=== PATIENT | female | born 1955 ===

== ENCOUNTER 2021-06-07 09:26 | Emergency (ER) | payer SELFPAY ==
[~2021-06-07 09:26] MED LIST: CALCIUM CHLORIDE 1,000 MG/10 ML SYRINGE IV ONE; EPINEPHrine 1 MG/10 ML SYRINGE ONE; MAGNESIUM SULFATE 1 GM/2ML (4 MEQ/1ML) INJ ONE; SODIUM BICARB 8.4% 50 MEQ/50 ML SYRINGE IV ONE
[2021-06-07] MEDS ORDERED: SODIUM CHLORIDE 0.9% 1000 ML 1,000 ML IV ONE (09:33)
--- NOTE | 2021-06-07 09:37 | Emergency Department Report ---
HPI - General Chief Complaint: Dyspnea/Respdistress Time Seen by Provider: 06/07/21 09:28 - HPI HPI: Room 17 The patient is 65-year-old female present with a chief complaint of altered mental status. Per EMS the patient's found the patient unresponsive and EMS was called. Secondary to language barrier EMS states they were not able to obtain history surrounding the circumstances of the patient being found altered. EMS reports the patient was hypoxic to approximately 63% on room air. EMS reports the patient vomited blood so the decision to intubate to secure the airway was made in the ambulance. Upon arrival to the ED the patient is i ntubated being bagged by EMS but still unresponsive. ED Past Medical Hx - Past Medical History Previous Medical History?: Yes Hx Diabetes: Yes - Surgical History Past Surgical History?: No - Family History Family history: no significant - Social History Smoking Status: Unknown if ever smoked Substance Use Type: None - Medications Home Medications: Home Medications Medication Instructions Recorded Confirmed Last Taken Type Insulin NPH Hum/Reg Insulin Hm 2 unit SQ QPM 10/17/15 10/17/15 Unknown History [HumuLIN 70-30 Vial] Insulin NPH Hum/Reg Insulin Hm 3 unit SQ QDAY 10/17/15 10/17/15 Unknown History [HumuLIN 70-30 Vial] Ketorolac [Toradol] 10 mg PO Q6H PRN #20 tablet 10/17/15 Unknown Rx cephALEXin [Keflex] 500 mg PO Q6HR #28 capsule 10/17/15 Unknown Rx metFORMIN [Glucophage] 500 mg PO BID 10/17/15 10/17/15 Unknown History ED Review of Systems ROS: Stated complaint: UNRESPONSIVE Other details as noted in HPI Comment: Unobtainable due to pts medical conditions Physical Exam - Physical Exam Vital Signs: Vital Signs 06/07/21 09:28 Pulse Rate 140 H Respiratory 18 Rate Blood Pressure 160/30 [Left] O2 Sat by Pulse 100 Oximetry Physical Exam: GENERAL: The patient is well-developed well-nourished female lying on stretcher being bagged via ET tube unresponsive. [] HEENT: Normocephalic. Atraumatic. Pupils 5 to 4 mm bilaterally NECK: Trachea midline CHEST/LUNGS: Clear to auscultation. There is no respiratory distress noted. HEART/CARDIOVASCULAR: Regular. There is tachycardia. There is no gallop rub or murmur. ABDOMEN: Abdomen is soft, nontender. Patient has normal bowel sounds. There is no abdominal distention. SKIN: There is no rash. There is no edema. There is no diaphoresis. NEURO: GCS 3 T MUSCULOSKELETAL: There is no evidence of acute injury. ED Course Vital Signs 06/07/21 09:28 Pulse Rate 140 H Respiratory 18 Rate Blood Pressure 160/30 [Left] O2 Sat by Pulse 100 Oximetry - Consultations Consultation #1: 06/07/21 13:08 Neurosurgery paged 06/07/21 15:02 Case discussed with neurosurgery- nonsurvivable. ED Medical Decision Making - Lab Data Result diagrams: 06/07/21 10:11 06/07/21 10:11 - Radiology Data Radiology results: report reviewed (Chest x-ray, CT head, CTA chest, CTA abdomen pelvis), image reviewed (Chest x-ray, CT head, CT chest, CTA abdomen pelvis) interpreted by me: Chest x-ray-no definite focal infiltrates, no pneumothorax. ET tube in appropriate position [facility] [address] [place] [address] XRay Report Signed Patient: ANTOINE NANCE MR#: [id number] : 1955 Acct:[id number] Age/Sex: 65 / F ADM Date: 06/07/21 Loc: ED Attending Dr: Ordering Physician: REBEKA BURNHAM MD Date of Service: 06/07/21 Procedure(s): XR chest 1V ap Accession Number(s): [id number] cc: REBEKA BURNHAM MD Fluoro Time In Minutes: CHEST 1 VIEW INDICATION: Hypoxia s/p intubation. COMPARISON: None FINDINGS: Support devices: An endotracheal tube has been deployed which is in good position terminating 3.6 cm superior to the lucero. A nasogastric tube has been inserted which terminates in the fundus/body of the stomach. Cardiac defibrillator pads overlie the chest. Heart: Within normal limits. Lungs/Pleura: The lungs are clear with no evidence for infiltrate, pleural effusion or pneumothorax. Additional findings: None. IMPRESSION: Adequate placement of lines and tubes. No acute process is identified in the chest. Signer Name: Marvin Gonsalez Jr, MD Signed: 06/07/2021 9:59 AM Workstation Name: [id number] Transcribed By: TTR Dictated By: MARVIN GONSALEZ JR, MD Electronically Authenticated By: MARVIN GONSALEZ JR, MD Signed Date/Time: 06/07/21958 DD/ 7 TD/TT: Print Cancel [facility] [address] [place] [address] Cat Scan Report Signed Patient: ANTOINE NANCE MR#: [id number] : 1955 Acct:[id number] Age/Sex: 65 / F ADM Date: 06/07/21 Loc: ED Attending Dr: Ordering Physician: REBEKA BURNHAM MD Date of Service: 06/07/21 Procedure(s): CT head/brain wo con Accession Number(s): [id number] cc: REBEKA BURNHAM MD CT head/brain wo con INDICATION / CLINICAL INFORMATION: 65 years Female; Altered mental status/unresponsive. TECHNIQUE: Routine CT head without contrast. All CT scans at this location are performed using CT dose reduction for ALARA by means of automated exposure control. COMPARISON: None. FINDINGS: BRAIN / INTRACRANIAL CONTENTS: There is a large acute hematoma centered within the left frontal lobe measuring approximately 5.7 cm AP by 5.3 cm transverse in greatest dimensions. The hemorrhage also extends along the genu of corpus callosum involving medial right frontal lobe and the findings at may reflect lesion given the involvement of disc breath vascular distributions. There is associated surrounding edema with notable mass effect and subfalcine herniation. There is also notable effacement of the basal cisterns concerning for developing uncal herniation. There is notable interventricular extension of the hemorrhage which includes the third and fourth ventricles at. The hemorrhage within the lateral ventricles is greater on the left at. There is moderate to dilatation of the right lateral ventricle, particularly the right temporal horn which appears trapped. There is hemorrhage extending within the sylvian aqueduct and dilated fourth ventricle. However, there may also be a component within the marnie concerning for Duret hemorrhage. ORBITS: No significant abnormality of visualized orbits. SINUSES / MASTOIDS: Small air-fluid levels are seen within the maxillary sinuses in this intubated patient. CRANIOCERVICAL JUNCTION: No significant abnormality. ADDITIONAL FINDINGS: None. IMPRESSION: 1. There is large acute hematoma involving left frontal lobe which crosses the midline along the genu of the corpus callosum as detailed above. There is associated significant mass effect with subfalcine and impending uncal herniation 2. There is notable interventricular extension of the hemorrhage along with moderate dilatation of the right lateral ventricle which appears trapped. 3. Acute hemorrhage is noted along the sylvian aqueduct. However, there may also be component of hemorrhage within the marnie concerning for developing a intracranial hemorrhage given the above findings in mass effect. The findings represent a positive clinical test result and were discovered at 12:10 PM and called to Dr. Burnham in the ER at 12:12 PM Central standard time. Signer Name: Jamar Donovan MD Signed: 06/07/2021 1:14 PM Workstation Name: [id number] Transcribed By: MR Dictated By: Jamar Donovan MD Electronically Authenticated By: Jamar Donovan MD Signed Date/Time: 06/07/21 1315 DD/ 1304 TD/TT: Print Cancel [facility] [address] [place] [address] Cat Scan Report Signed Patient: ANTOINE NANCE MR#: [id number] : 1955 Acct:[id number] Age/Sex: 65 / F ADM Date: 06/07/21 Loc: ED Attending Dr: Ordering Physician: REBEKA BURNHAM MD Date of Service: 06/07/21 Procedure(s): CT angio chest Accession Number(s): [id number] cc: REBEKA BURNHAM MD CTA of the chest abdomen and pelvis with IV contrast INDICATION / CLINICAL INFORMATION: Hematemesis 100 ML OMNI 350 . Chest and abdominal pain GI bleed. TECHNIQUE: Axial CT images were obtained after injection of 100 mL Omnipaque 300 IV contrast using CTA protocol through the chest abdomen and pelvis. 3 plane MIP / 3D reconstructions were produced. All CT scans at this location are performed using CT dose reduction for ALARA by means of automated exposure control. COMPARISON: None available. FINDINGS: CTA chest: The endotracheal tube terminates about 2 cm above the lucero. There is patchy mixed groundglass and interstitial opacity within the lower lungs. There is focal consolidation surrounding the pulmonary vasculature within the medial aspect of the right lung base measuring about 2.9 x 2.4 cm. Patchy bibasilar atelectasis The heart size is normal. No pericardial or significant pleural effusion. No thoracic aortic aneurysm or dissection. There is mild scattered atherosclerotic calcification. Multiple shotty nonpathologically enlarged nodes are present within the mediastinum and both abbey. CTA abdomen and pelvis: Moderate atherosclerotic calcification of a nondilated abdominal aorta. No aneurysm or dissection. The celiac and SMA arteries are grossly patent. The renal arteries are grossly patent. The VENICE is patent. The liver is fatty. The gallbladder is unremarkable. The spleen, pancreas and kidneys are unremarkable. Multiple nodules are present within the left adrenal gland. Urinary bladder is collapsed by Ag catheter. The colon contains a moderate amount of stool but no contrast extravasation is identified. IMPRESSION: 1. Ill-defined 2.8 x 2.7 cm masslike opacity within the medial aspect of the right lower lobe. Underlying neoplasm cannot be excluded. 2. Moderate atherosclerotic calcification of the infrarenal abdominal aorta. No aneurysm or dissection is identified. No acute intra-abdominal findings are identified. Fatty liver and other incidental findings as noted above. Signer Name: Tam Ricci MD Signed: 06/07/2021 1:25 PM Workstation Name: [id number] Transcribed By: BC Dictated By: Tam Ricci MD Electronically Authenticated By: Tam Ricci MD Signed Date/Time: 06/07/21 1325 DD/ 1318 TD/TT: Print Cancel - Differential Diagnosis ICH, COVID-19, respiratory failure, DKA, hypovolemia Critical Care Time: Yes Critical care time in (mins) excluding proc time.: 30 Critical care attestation.: If time is entered above; I have spent that time in minutes in the direct care of this critically ill patient, excluding procedure time. ED Disposition Clinical Impression: Intracranial hemorrhage, Thrombocytopenia, Leukemia Disposition: ADMITTED INPATIENT Is pt being admited?: Yes Does the pt Need Aspirin: No Condition: Stable Referrals: PRIMARY CARE, [Primary Care Provider] - 3-5 Days Time of Disposition: 15:05 (Hospitalist called (Dr. Kitchen))
[2021-06-07 09:49] LABS: Bilirubin,Urine NEG (Negative); Blood,Urine NEG (Negative); Color,Urine Yellow (Yellow); Protein,Urine <15 mg/dL mg/dL (Negative); Urobilinogen,Urine < 2.0 mg/dL (<2.0); WBC,Urine < 1.0 /HPF (0.0-6.0)
[2021-06-07 09:58] LABS: RBC,Urine < 1.0 /HPF (0.0-6.0)
--- NOTE | 2021-06-07 10:04 | XRay Report ---
CHEST 1 VIEW INDICATION: Hypoxia s/p intubation. COMPARISON: None FINDINGS: Support devices: An endotracheal tube has been deployed which is in good position terminating 3.6 cm superior to the lucero. A nasogastric tube has been inserted which terminates in the fundus/body of t he stomach. Cardiac defibrillator pads overlie the chest. Heart: Within normal limits. Lungs/Pleura: The lungs are clear with no evidence for infiltrate, pleural effusion or pneumothorax. Additional findings: None. IMPRESSION: Adequate placement of lines and tubes. No acute process is identified in the chest. Signer Name: Marvin Gonsalez Jr, MD Signed: 06/07/2021 9:59 AM Workstation Name: [id number]
[2021-06-07 10:06] LABS: Amphetamine Screen,Urine Negative; Benzodiazepines Screen,Urine Negative; Cannabinoid Screen,Urine Negative; Cocaine Screen,Urine Negative; Methadone Screen,Urine Negative; Opiate Screen,Urine Negative
[2021-06-07 10:30] LABS: INR 1.98 (0.87-1.13); Partial Thromboplastin Time 34.3 Sec. (24.2-36.6)
[2021-06-07 10:31] LABS: Hematocrit 20.3 % (30.3-42.9); Mean Corpuscular HGB Conc 30 % (30-34); Mean Corpuscular Volume 94 fl (79-97); Red Blood Count 2.16 M/mm3 (3.65-5.03); Red Cell Distribution Width 15.3 % (13.2-15.2)
[2021-06-07 10:33] LABS: ABG Base Excess -11.7 mmol/L (-2.0-3.0); ABG PCO2 27.1 mm Hg; ABG PH 7.298 pH Units (7.350-7.450); ABG PO2 83.5 mm Hg (80.0-90.0)
[2021-06-07 10:36] LABS: Platelet Count 8 K/mm3 (140-440)
[2021-06-07 10:37] LABS: ABG Methemoglobin 0.6 % (0.0-1.5); ABG Oxygen Saturation 98.3 % (95.0-99.0)
[2021-06-07 10:41] LABS: Albumin 3.6 g/dL (3.9-5)
[2021-06-07 10:50] LABS: Free T4 (Free Thyroxine) 1.62 ng/dL (0.76-1.46)
[2021-06-07 10:53] LABS: Calcium 8.7 mg/dL (8.4-10.2)
[2021-06-07] MEDS ORDERED: LACTULOSE ENEMA 1000 ML PR ONE (11:49)
[2021-06-07] MEDS ORDERED: NORepinephrine/NS 8 MG-250 ML 8 MG/250 ML INFUS..BTL IV SCH (12:00)
[2021-06-07 12:08] LABS: Basophils % (Manual) 0 % (0.0-1.8); Eosinophils % (Manual) 0 % (0.0-4.3); Monocytes % (Manual) 0 % (0.0-7.3); Total Cells Counted 13
[2021-06-07] MEDS ORDERED: SODIUM CHLORIDE 0.9% 500 ML 500 ML IV ONE (12:39)
--- NOTE | 2021-06-07 13:19 | Cat Scan Report ---
CT head/brain wo con INDICATION / CLINICAL INFORMATION: 65 years Female; Altered mental status/unresponsive. TECHNIQUE: Routine CT head without contrast. All CT scans at this location are performed using CT dos e reduction for ALARA by means of automated exposure control. COMPARISON: None. FINDINGS: BRAIN / INTRACRANIAL CONTENTS: There is a large acute hematoma centered within the left frontal lobe measuring approximately 5.7 cm AP by 5.3 cm transverse in greatest dimensions. The hemorrhage also ex tends along the genu of corpus callosum involving medial right frontal lobe and the findings at may r eflect lesion given the involvement of disc breath vascular distributions. There is associated surrou nding edema with notable mass effect and subfalcine herniation. There is also notable effacement of t he basal cisterns concerning for developing uncal herniation. There is notable interventricular extension of the hemorrhage which includes the third and fourth ian tricles at. The hemorrhage within the lateral ventricles is greater on the left at. There is moderate to dilatation of the right lateral ventricle, particularly the right temporal horn which appears tra pped. There is hemorrhage extending within the sylvian aqueduct and dilated fourth ventricle. However , there may also be a component within the marnie concerning for Duret hemorrhage. ORBITS: No significant abnormality of visualized orbits. SINUSES / MASTOIDS: Small air-fluid levels are seen within the maxillary sinuses in this intubated pa tient. CRANIOCERVICAL JUNCTION: No significant abnormality. ADDITIONAL FINDINGS: None. IMPRESSION: 1. There is large acute hematoma involving left frontal lobe which crosses the midline along the genu of the corpus callosum as detailed above. There is associated significant mass effect with subfalcin e and impending uncal herniation 2. There is notable interventricular extension of the hemorrhage along with moderate dilatation of th e right lateral ventricle which appears trapped. 3. Acute hemorrhage is noted along the sylvian aqueduct. However, there may also be component of hemo rrhage within the marnie concerning for developing a intracranial hemorrhage given the above findings i n mass effect. The findings represent a positive clinical test result and were discovered at 12:10 PM and called to Dr. Serrano in the ER at 12:12 PM Central standard time. Signer Name: Jamar Donovan MD Signed: 06/07/2021 1:14 PM Workstation Name: [id number]
--- NOTE | 2021-06-07 13:30 | Cat Scan Report ---
CTA of the chest abdomen and pelvis with IV contrast INDICATION / CLINICAL INFORMATION: Hematemesis 100 ML OMNI 350 . Chest and abdominal pain GI bleed. TECHNIQUE: Axial CT images were obtained after injection of 100 mL Omnipaque 300 IV contrast using CTA protocol through the chest abdomen and pelvis. 3 plane MIP / 3D reconstructions were produced. All CT scans at this location are performed using CT dose reduction for ALARA by means of automated exposure control . COMPARISON: None available. FINDINGS: CTA chest: The endotracheal tube terminates about 2 cm above the lucero. There is patchy mixed groundglass and i nterstitial opacity within the lower lungs. There is focal consolidation surrounding the pulmonary va sculature within the medial aspect of the right lung base measuring about 2.9 x 2.4 cm. Patchy bibasi lar atelectasis The heart size is normal. No pericardial or significant pleural effusion. No thoracic aortic aneurysm or dissection. There is mild scattered atherosclerotic calcification. Multiple shotty nonpathologica lly enlarged nodes are present within the mediastinum and both abbey. CTA abdomen and pelvis: Moderate atherosclerotic calcification of a nondilated abdominal aorta. No aneurysm or dissection. Th e celiac and SMA arteries are grossly patent. The renal arteries are grossly patent. The VENICE is paten t. The liver is fatty. The gallbladder is unremarkable. The spleen, pancreas and kidneys are unremarkabl e. Multiple nodules are present within the left adrenal gland. Urinary bladder is collapsed by Ga catheter. The colon contains a moderate amount of stool but no contrast extravasation is identified. IMPRESSION: 1. Ill-defined 2.8 x 2.7 cm masslike opacity within the medial aspect of the right lower lobe. Underl jayden neoplasm cannot be excluded. 2. Moderate atherosclerotic calcification of the infrarenal abdominal aorta. No aneurysm or dissectio n is identified. No acute intra-abdominal findings are identified. Fatty liver and other incidental f indings as noted above. Signer Name: Tam Ricci MD Signed: 06/07/2021 1:25 PM Workstation Name: [id number]
--- NOTE | 2021-06-07 17:29 | History and Physical Report ---
History of Present Illness Chief complaint: Unresponsive History of present illness: 65 YO Female with DM, OA presents to ED for evaluation. Patient is intubated and ambulatory support at time of evaluation is unable to provide history. Patient history provided by EMS staff, ED staff, as well as the patient family was at bedside during exam and review. As per the patient was found down and unresponsive this morning. EMS was notified and upon arrival the patient was found to be in distress with blood in her oropharynx and in respiratory distress with a pulse oximetry of 63% on room air. Patient intu bated in the field and transported to [facility] for further care and evaluation of the aforementioned symptoms. The patient was seen and evaluated in the emergency department. All lab and imaging studies reviewed. Patient found to have a pulse oximetry of 60% which is consistent with acute hypoxemic respiratory failure. 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 Patient experienced cardiac arrest while in the emergency department. Patient treated" with ACLS protocol with eventual return of perfusing cardiac rhythm. Patient found to have poor prognosis. Neurosurgery consulted and intracranial hemorrhage deemed nonsurvivable. Patient family informed of poor prognosis. Advanced care planning conducted in ED. Patient family elects to make patient DNR and initiate comfort measures and to initiate withdrawal of care. Past History Past Medical History: arthritis, diabetes, other (See HPI) Past Surgical History: No surgical history, Other (Reviewed) Social history: , lives with family Family history: no significant family history Medications and Allergies Allergies Allergy/AdvReac Type Severity Reaction Status Date / Time No Known Allergies Allergy Verified 06/07/21 09:31 Home Medications Medication Instructions Recorded Confirmed Last Taken Type Insulin NPH Hum/Reg Insulin Hm 2 unit SQ QPM 10/17/15 10/17/15 Unknown History [HumuLIN 70-30 Vial] Insulin NPH Hum/Reg Insulin Hm 3 unit SQ QDAY 10/17/15 10/17/15 Unknown History [HumuLIN 70-30 Vial] Ketorolac [Toradol] 10 mg PO Q6H PRN #20 tablet 10/17/15 Unknown Rx cephALEXin [Keflex] 500 mg PO Q6HR #28 capsule 10/17/15 Unknown Rx metFORMIN [Glucophage] 500 mg PO BID 10/17/15 10/17/15 Unknown History Active Meds: Active Medications NORepinephrine/NS 8 MG-250 ML (Norepinephrine/Ns 8 Mg-250 Ml (Double Conc)) 8 m g in 250 mls @ 3.75 mls/hr IV TITRATE DENIS; Protocol Last Titration: 06/07/21 13:02 Dose: 0 mcg/min, 0 mls/hr Review of Systems ROS unobtainable: due to endotracheal tube, due to mental status Exam - Constitutional Vitals: Temp Pulse Resp BP Pulse Ox 98.4 F 126 H 18 93/51 99 06/07/21 09:31 06/07/21 16:57 06/07/21 16:15 06/07/21 16:57 06/07/21 16:57 General appearance: Present: severe distress - EENT Eyes: Present: mydriasis ENT: hearing decreased - Neck Neck: Present: supple, normal ROM - Respiratory Respiratory effort: labored Respiratory: bilateral: diminished, rhonchi - Cardiovascular Rhythm: other (Hypotensive, tachycardic) - Extremities Extremities: no ischemia Peripheral Pulses: abnormal (Capillary refill greater than 3.5 seconds) - Abdominal General gastrointestinal: Present: soft, non-tender, non-distended, normal bowel sounds Female genitourinary: Present: normal - Integumentary Integumentary: Present: dry, clammy, decreased turgor - Musculoskeletal Musculoskeletal: generalized weakness - Psychiatric Psychiatric: no appropriate mood/affect, no intact judgment & insight, no memory intact - Neurologic Neurologic: no CNII-XII intact, focal deficits, no moves all extremities, no gait normal HEART Score - HEART Score Troponin: Troponin T 0.146 ng/mL (0.00-0.029) H* 06/07/21 10:11 Results - Labs CBC & Chem 7: 06/07/21 10:11 06/07/21 10:11 Labs: Abnormal lab results 06/07/21 06/07/21 06/07/21 Range/Units 10:10 10:11 10:11 WBC 158.9 H* (4.5-11.0) K/mm3 RBC 2.16 L (3.65-5.03) M/mm3 Hgb 6.0 L (10.1-14.3) gm/dl Hct 20.3 L (30.3-42.9) % RDW 15.3 H (13.2-15.2) % Plt Count 8 L* (140-440) K/mm3 Seg Neuts % (Manual) 0 L (40.0-70.0) % Lymphocytes % (Manual) 92.3 H (13.4-35.0) % Seg Neutrophils # Man 0.0 L (1.8-7.7) K/mm3 Lymphocytes # (Manual) 146.7 H (1.2-5.4) K/mm3 PT 24.3 H (12.2-14.9) Sec. INR 1.98 H (0.87-1.13) ABG pH 7.298 L (7.350-7.450) pH Units ABG HCO3 13.0 L (20.0-26.0) mmol/L ABG Base Excess -11.7 L (-2.0-3.0) mmol/L ABG Hemoglobin 6.4 L (12.0-16.0) gm/dl Sodium (137-145) mmol/L Chloride (98-107) mmol/L Carbon Dioxide (22-30) mmol/L BUN (7-17) mg/dL Glucose (65-100) mg/dL Lactic Acid (0.7-2.0) mmol/L AST (5-40) units/L Alkaline Phosphatase (35-129) units/L Ammonia (25-60) umol/L CK-MB (CK-2) Rel Index (0-4) Troponin T (0.00-0.029) ng/mL Albumin (3.9-5) g/dL TSH (0.270-4.200) mlU/mL Free T4 (0.76-1.46) ng/dL 06/07/21 06/07/21 06/07/21 Range/Units 10:11 10:11 10:11 WBC (4.5-11.0) K/mm3 RBC (3.65-5.03) M/mm3 Hgb (10.1-14.3) gm/dl Hct (30.3-42.9) % RDW (13.2-15.2) % Plt Count (140-440) K/mm3 Seg Neuts % (Manual) (40.0-70.0) % Lymphocytes % (Manual) (13.4-35.0) % Seg Neutrophils # Man (1.8-7.7) K/mm3 Lymphocytes # (Manual) (1.2-5.4) K/mm3 PT (12.2-14.9) Sec. INR (0.87-1.13) ABG pH (7.350-7.450) pH Units ABG HCO3 (20.0-26.0) mmol/L ABG Base Excess (-2.0-3.0) mmol/L ABG Hemoglobin (12.0-16.0) gm/dl Sodium 136 L (137-145) mmol/L Chloride 97.2 L (98-107) mmol/L Carbon Dioxide 11 L (22-30) mmol/L BUN 22 H (7-17) mg/dL Glucose 484 H (65-100) mg/dL Lactic Acid 8.30 H* (0.7-2.0) mmol/L AST 104 H (5-40) units/L Alkaline Phosphatase 298 H (35-129) units/L Ammonia 94.0 H (25-60) umol/L CK-MB (CK-2) Rel Index 4.9 H (0-4) Troponin T 0.146 H* (0.00-0.029) ng/mL Albumin 3.6 L (3.9-5) g/dL TSH (0.270-4.200) mlU/mL Free T4 (0.76-1.46) ng/dL 06/07/21 06/07/21 06/07/21 Range/Units 10:11 13:55 Unknown WBC (4.5-11.0) K/mm3 RBC (3.65-5.03) M/mm3 Hgb (10.1-14.3) gm/dl Hct (30.3-42.9) % RDW (13.2-15.2) % Plt Count (140-440) K/mm3 Seg Neuts % (Manual) (40.0-70.0) % Lymphocytes % (Manual) (13.4-35.0) % Seg Neutrophils # Man (1.8-7.7) K/mm3 Lymphocytes # (Manual) (1.2-5.4) K/mm3 PT (12.2-14.9) Sec. INR (0.87-1.13) ABG pH (7.350-7.450) pH Units ABG HCO3 (20.0-26.0) mmol/L ABG Base Excess (-2.0-3.0) mmol/L ABG Hemoglobin (12.0-16.0) gm/dl Sodium (137-145) mmol/L Chloride (98-107) mmol/L Carbon Dioxide (22-30) mmol/L BUN (7-17) mg/dL Glucose (65-100) mg/dL Lactic Acid 3.20 H* 4.60 H* (0.7-2.0) mmol/L AST (5-40) units/L Alkaline Phosphatase (35-129) units/L Ammonia (25-60) umol/L CK-MB (CK-2) Rel Index (0-4) Troponin T (0.00-0.029) ng/mL Albumin (3.9-5) g/dL TSH 0.267 L (0.270-4.200) mlU/mL Free T4 1.62 H (0.76-1.46) ng/dL Assessment and Plan - Patient Problems (1) Septic shock Current Visit: Yes Status: Acute Plan to address problem: Sepsis protocol: Prior to initiation of sepsis protocol the patient family informed hospital staff that they elect to initiate comfort care measures and make patient DNR. The high probability of a clinically significant, sudden or life threatening deterioration of the [neuro, cardiac, pulmonary, renal,] system(s) required my full and direct attention, intervention and personal management. The aggregate critical care time was [95] minutes. This time is in addition to time spent performing reported procedures but includes the following: [x] Data Review and interpretation [x] Patient assessment and monitoring of vital signs [x] Documentation [x] Medication orders and management (2) Acute hypoxemic respiratory failure Current Visit: Yes Status: Acute Plan to address problem: Patient intubated and placed on ventilatory support. (3) Intracranial hemorrhage Current Visit: Yes Status: Acute Plan to address problem: CT head, neurosurgery service consulted. (4) Leukemia Current Visit: Yes Status: Acute Plan to address problem: Supportive care. Patient family elects to initiate comfort care measures as well as withdrawal of care measures. Patient family elects to make patient DNR. (5) Advance care planning Current Visit: Yes Status: Acute Plan to address problem: Disease education conducted, care plan discussed, diagnoses discussed, prognosis discussed. Patient family is at bedside. Patient family informed of prognosis. Patient family elects to initiate comfort care measures as well as withdrawal of care measures. +30 minutes.
[2021-06-07] MEDS ORDERED: LORazepam 2 MG/ML VIAL IV PRN (17:30)
[2021-06-07] MEDS ORDERED: MORPHINE 2 MG/1 ML INJ IV PRN (17:30)
[2021-06-07] MEDS ORDERED: ONDANSETRON 4 MG/2 ML INJ IV PRN ×2 (17:30→17:38)
[2021-06-07] MEDS ORDERED: ACETAMINOPHEN 650 MG RECT SUPP PR PRN (17:30)
[2021-06-07] MEDS ORDERED: diphenhydrAMINE 50 MG/ML VIAL IV PRN (17:30)
[2021-06-07] MEDS ORDERED: GLYCOPYRROLATE 0.4 MG/2 ML INJ IV PRN (17:30)
[2021-06-07] MEDS ORDERED: ACETAMINOPHEN 325 MG TAB PO PRN (17:38)
[2021-06-07] MEDS ORDERED: HYDROmorphone 1 MG/1 ML INJ IV PRN (17:38)
[2021-06-07 17:55] VITALS: BP 103/28
[2021-06-07] MEDS ORDERED: fentaNYL DRIP Premix 2,000 MCG/100 ML BAG IV SCH (18:00)
--- NOTE | 2021-06-07 20:59 | Death Note ---
Note Date of : 06/07/21 Time of : 17:51 Time Pronounced: 17:51 - Preliminary Cause of (problem) (1) Septic shock Preliminary cause of (2) Acute hypoxemic respiratory failure Preliminary cause of (3) Intracranial hemorrhage Preliminary cause of (4) Leukemia Preliminary cause of (5) Advance care planning Patient seen and evaluated by me. On neurologic exam the patient was found to have absent brainstem reflexes. Patient pupils are fixed and dilated. On pulmonary exam the patient was found to have absent breath sounds. On cardiac exam the patient was found to have absent heart sounds. Asystole was observed on the cardiac cath lab manager. Patient pronounced . Patient family at bedside . Bereavement offered. Patient family has tenriism support in place. Advanced care planning conducted. +30 minutes.
[2021-06-08 11:52] LABS: Nucleated Red Blood Cells 0.7 % (0.0-0.9)
== END 2021-06-07 21:51 ==
LOC: ED 09:26 → 3A 17:38 → UNDOADMIN 17:38 → ED 21:51
DX: C92.00 Acute myeloblastic leukemia, not having achieved remission (principal); J96.00 Acute respiratory failure, unspecified whether with hypoxia or hypercapnia; I46.9 Cardiac arrest, cause unspecified; I62.9 Nontraumatic intracranial hemorrhage, unspecified; E11.9 Type 2 diabetes mellitus without complications; R65.21 Severe sepsis with septic shock
CPT/HCPCS: 36415; 70450; 71045; 71275; 74174; 80053; 80307; 81001; 82140; 82550; 82553; 82803; 82805; 83880; 84439; 84443; 84484; 85007; 85025; 85610; 85730; 86850; 86900; 86901; 87040; 87070; 87205; 93005; 96361; 96365; 99291; J0171; J2354; J3475; J3490; J7030; Q9967; 80320; 94002; Q0162; G0480